=== PATIENT | male | born 1990 | race Caucasian/White ===

== ENCOUNTER 2017-10-18 04:24 | Inpatient (IN) | payer OTHER ==
[~2017-10-18 04:24] MED LIST: LORazepam 2 MG/ML INJ IVP ONE
[2017-10-18] MEDS ORDERED: TDAP ADULT 0.5 ML INJ (BOOSTRIX) IM ONE (04:32)
[2017-10-18] MEDS ORDERED: cefTRIAXone 1 GM/DEXTROSE 1 GM/50 ML BAG IV ONE (04:33)
[2017-10-18] MEDS ORDERED: ceFAZolin 2 GM/DEXTROSE 100 ML IV ONE (04:33)
[2017-10-18] MEDS ORDERED: LORazepam 2 MG/ML INJ IVP ONE (04:34)
[2017-10-18] MEDS ORDERED: CEFAZOLIN 1 GM/DEXTROSE/50 ML BAG IV ONE (04:35)
--- NOTE | 2017-10-18 04:37 | EDPHY ---
H & P Stated Complaint: L arm laceration Time Seen by Provider: 10/18/17 04:33 HPI/ROS: HPI: The patient presents with a laceration to his left elbow sustained just prior to arrival, brought in by paramedics. The patient says that he fell through a window, cutting his left elbow in the antecubital fossa with glass. He has had pain ever since which is constant, achy. He has no numbness or tingling of his hand and has full range of motion of his digits. He is covered in blood and bleeding has been difficult to control. REVIEW OF SYSTEMS Constitutional: No fever, no chills. Eyes: No discharge. ENT: No sore throat. Cardiovascular: No chest pain, no palpitations. Respiratory: No cough, no shortness of breath. Gastrointestinal: No abdominal pain, no vomiting. Genitourinary: No hematuria. Musculoskeletal: No back pain. Skin: No rashes. Neurological: No headache. PMHx: On Vivitrol TRAUMA PHYSICAL General Appearance: Alert, no distress Head: Atraumatic Eyes: Pupils equal, round, reactive ENT, Mouth: No hemotypanium, no oral trauma Neck: Non- tender, trachea midline Respiratory: No chest wall tenderness, no subcutaneous air, lungs clear bilaterallty Cardiovascular: Regular rate and rhythm Abdomen: Abdomen is soft and non-tender, pelvis stable Skin: Right antecubital fossa with 6 cm laceration which is gaping with active significant oozing of blood from the wound Back: No midline T/L/S pain Extremities: Biceps tendon on the right is shortened, holding his arm in extension, 2+ DP pulses, sensation intact in hand Neurological: A&Ox3, GCS=15, hand strength is full except that he is unable to give a thumbs-up sign Source: Patient Exam Limitations: No limitations Constitutional: Initial Vital Signs Temperature (C) 36.6 C 10/18/17 04:30 Heart Rate 82 10/18/17 04:30 Respiratory Rate 20 10/18/17 04:30 Blood Pressure 102/41 L 10/18/17 04:30 O2 Sat (%) 93 10/18/17 04:30 O2 Delivery Mode Nasal Cannula O2 (L/minute) 4 Allergies/Adverse Reactions: No Known Allergies Allergy (Unverified 10/18/17 04:53) Medical Decision Making - Diagnostics Imaging Results: X-ray left elbow two view shows no fracture, no dislocation, no retained foreign body. Interpreted by me, radiology interpretation is pending. Imaging: I viewed and interpreted images myself Differential Diagnosis: 28-year-old male, currently on Vivitrol, presents brought in by ambulance after fall through sliding glass door, sustaining large laceration to his left elbow. He has active bleeding which has been difficult for medics to control. His laceration is in the antecubital fossa. He seems to be neurovascularly intact though cannot give thumbs up sign somewhat concerning for median nerve injury. Pressure dressing was placed and tourniquet was placed. Patient was given Ancef , tetanus was updated, he was given Ativan for anxiety. I consulted with Dr. Walsh from Trauma surgery and he will come and see the patient. Dr. Walsh evaluated the patient in the emergency department. I also discussed the case with Dr. Frias of Orthopedics. They plan to take the patient to the OR for an exploration of the wound and possible biceps tendon repair. - Data Points Laboratory Results: Laboratory Results 10/18/17 04:30 10/18/17 04:30 10/18/17 10/18/17 10/18/17 04:30 04:30 04:30 WBC 9.90 10^3/uL H 10^3/uL (3.80-9.50) RBC 4.59 10^6/uL 10^6/uL (4.40-6.38) Hgb 15.1 g/dL g/dL (13.7-17.5) Hct 42.7 % % (40.0-51.0) MCV 93.0 fL fL (81.5-99.8) MCH 32.9 pg pg (27.9-34.1) MCHC 35.4 g/dL g/dL (32.4-36.7) RDW 12.2 % % (11.5-15.2) Plt Count 275 10^3/uL 10^3/uL (150-400) MPV 9.5 fL fL (8.7-11.7) Neut % (Auto) 50.2 % % (39.3-74.2) Lymph % (Auto) 41.0 % % (15.0-45.0) [place] % (Auto) 7.3 % % (4.5-13.0) Eos % (Auto) 0.5 % L % (0.6-7.6) Baso % (Auto) 0.6 % % (0.3-1.7) Nucleat RBC Rel Count 0.0 % % (0.0-0.2) Absolute Neuts (auto) 4.97 10^3/uL 10^3/uL (1.70-6.50) Absolute Lymphs (auto) 4.06 10^3/uL H 10^3/uL (1.00-3.00) Absolute Monos (auto) 0.72 10^3/uL 10^3/uL (0.30-0.80) Absolute Eos (auto) 0.05 10^3/uL 10^3/uL (0.03-0.40) Absolute Basos (auto) 0.06 10^3/uL 10^3/uL (0.02-0.10) Absolute Nucleated RBC 0.00 10^3/uL 10^3/uL (0-0.01) Immature Gran % 0.4 % % (0.0-1.1) Immature Gran # 0.04 10^3/uL 10^3/uL (0.00-0.10) PT 13.9 SEC SEC (12.0-15.0) INR 1.05 (0.83-1.16) Sodium 141 mEq/L mEq/L (135-145) Potassium 3.3 mEq/L mEq/L (3.3-5.0) Chloride 103 mEq/L mEq/L (97-110) Carbon Dioxide 22 mEq/l mEq/l (22-31) Anion Gap 16 mEq/L mEq/L (8-16) BUN 24 mg/dL H mg/dL (7-23) Creatinine 1.0 mg/dL mg/dL (0.7-1.3) Estimated GFR > 60 Glucose 120 mg/dL H mg/dL (70-100) Calcium 9.0 mg/dL mg/dL (8.5-10.4) Ethyl Alcohol 65 mg/dL H mg/dL (0-10) Medications Given: Discontinued Medications Cefazolin Sodium/Dextrose (Ancef 2 Gm) 100 mls @ 200 mls/hr IV EDNOW ONE PRN Reason: Protocol Stop: 10/18/17 05:02 Last Admin: 10/18/17 05:02 Dose: 100 mls Sodium Chloride (Ns) 1,000 mls @ 0 mls/hr IV ONCE ONE PRN Reason: Wide Open Stop: 10/18/17 05:03 Last Admin: 10/18/17 04:20 Dose: 1,000 mls Ketorolac Tromethamine (Toradol) 30 mg IVP EDNOW ONE Stop: 10/18/17 05:07 Last Admin: 10/18/17 05:09 Dose: 30 mg Lorazepam (Ativan Injection) 1 mg IVP EDNOW ONE Stop: 10/18/17 04:35 Last Admin: 10/18/17 05:02 Dose: 1 mg Lorazepam (Ativan Injection) 1 mg IVP EDNOW ONE Stop: 10/18/17 04:25 Last Admin: 10/18/17 04:34 Dose: 1 mg Morphine Sulfate (Morphine) 4 mg IVP EDNOW ONE Stop: 10/18/17 05:07 Last Admin: 10/18/17 06:23 Dose: Not Given Ondansetron HCl (Zofran) 4 mg IVP EDNOW ONE Stop: 10/18/17 05:07 Last Admin: 10/18/17 05:09 Dose: 4 mg Departure - Departure Disposition: [facility] Inpatient Acute Clinical Impression: Hemorrhage Arm laceration Qualifiers: Encounter type: initial encounter Laterality: right Qualified Code(s): S41.111A - Laceration without foreign body of right upper arm, initial encounter Biceps tendon rupture Qualifiers: Encounter type: initial encounter Laterality: right Qualified Code(s): S46.211A - Strain of muscle, fascia and tendon of other parts of biceps, right arm, initial encounter Condition: Fair
[2017-10-18 04:56] LABS: PLATELET COUNT 275 10^3/uL (150-400)
[2017-10-18] MEDS ORDERED: NS 1,000 ML IV ONE (05:02)
[2017-10-18] MEDS ORDERED: KETOROLAC 30 MG/1 ML SDV IVP ONE (05:06)
[2017-10-18] MEDS ORDERED: ONDANSETRON 4 MG/2 ML VIAL IVP ONE (05:06)
[2017-10-18 05:15] LABS: INR 1.05 (0.83-1.16); PROTIME(PATIENT) 13.9 SEC (12.0-15.0)
--- NOTE | 2017-10-18 05:49 | PDANEPAE ---
ANE History of Present Illness Repair of laceration antecubital arm, repair of neurovascular lesion ANE Past Medical History - Cardiovascular History Hx Hypertension: No Hx Arrhythmias: No Hx Chest Pain: No Hx Coronary Artery / Peripheral Vascular Disease: No Hx CHF / Valvular Disease: No Hx Palpitations: No - Pulmonary History Hx COPD: No Hx Asthma/Reactive Airway Disease: No Hx Recent Upper Respiratory Infection: No Hx Oxygen in Use at Home: No Hx Sleep Apnea: No - Endocrine History Hx Diabetes: No Hypothyroid: No Hyperthyroid: No Obesity: no - Renal History Hx Renal Disorders: No - Liver History Hx Hepatic Disorders: No - Neurological & Psychiatric Hx Hx Neurological and Psychiatric Disorders: No - Cancer History Hx Cancer: No - GI History GERD: no Hx Gastrointestinal Disorders: No - Other Health History Other Health History: hx of opioid use, now on Vivitrol - Surgical History Prior Surgeries: wisdom tooth extraction ANE Review of Systems Review of Systems: - Exercise capacity METS (RN): 4 METS ANE Patient History - Allergies Allergies/Adverse Reactions: No Known Allergies Allergy (Unverified 10/18/17 04:53) - NPO status NPO Status: no food or drink >8 hours NPO Since - Liquids (Date): 10/17/17 NPO Since - Liquids (Time): 23:55 NPO Since - Solids (Date): 10/17/17 NPO Since - Solids (Time): 23:55 - Anes Hx Hx Anesthesia Complications (with details): no prior general anesthesia - Smoking Hx Smoking Status: Current every day smoker Marijuana use: Yes - Alcohol Use Alcohol Use: Other (5 drinks about 3 times/week) - Family Anes Hx Family Anes Hx: none ANE Labs/Vital Signs - Labs Result Diagrams: 10/18/17 04:30 10/18/17 04:30 - Vital Signs Blood Pressure: 102/41 Heart Rate: 82 Respiratory Rate: 20 O2 Sat (%): 93 Height: 185.42 cm Weight: 81.647 kg ANE Physical Exam - Airway Neck exam: FROM Mallampati Score: Class 1 Mouth exam: normal dental/mouth exam - Pulmonary Pulmonary: clear to auscultation - Cardiovascular Cardiovascular: regular rate and rhythym - ASA Status ASA Status: II, E ANE Anesthesia Plan Anesthesia Plan: general endotracheal anesthesia (Discussed possible difficulty regarding optimal pain control with patient. Questions answered.)
[2017-10-18] MEDS ORDERED: PROPOFOL 200 MG/20 ML VIAL ONE ×2 (05:55→07:36)
[2017-10-18] MEDS ORDERED: ROCURONIUM 50 MG/5 ML VIAL ONE ×3 (05:56→06:00)
[2017-10-18] MEDS ORDERED: fentaNYL 250 MCG/5 ML INJ ONE ×2 (05:56→08:04)
[2017-10-18] MEDS ORDERED: RANITIDINE 50 MG/2 ML VIAL ONE (05:58)
[2017-10-18] MEDS ORDERED: DEXAMETHASONE 4 MG/ML VIAL ONE (05:58)
[2017-10-18] MEDS ORDERED: METOCLOPRAMIDE 10 MG/2 ML VIAL ONE (05:58)
[2017-10-18] MEDS ORDERED: MIDAZOLAM 2 MG/2 ML VIAL ONE (06:08)
--- NOTE | 2017-10-18 06:22 | GHP ---
[f rep st] PREOP HISTORY AND PHYSICAL DATE OF ADMISSION: 10/18/2017 ADMITTING DIAGNOSIS: Traumatic injury, right antecubital fossa with neurovascular and tendon injury. 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 He apparently suspected his girlfriend was cheating on him. He showed up at her house and looked in the bedroom window and reportedly confirmed his suspicions. Apparently, he punched the window. This resulted in a sharp injury to his antecubital fossa. He called out to her to call 911. When EMS arrived, shirt was wrapped around the arm. There was a great deal of blood in the area. He was seen initially in the ER by Dr. Campa. A tourniquet was placed in the right upper extremity. She felt that there was non-pulsatile blood flow from the antecubital fossa to her examination at that time. He could not give a thumbs-up on the right hand. I was asked to come help with his evaluation and treatment. SOCIAL HISTORY: He smokes a quarter to a half pack a day. He also uses marijuana. He drinks approximately 5 drinks 3 times a week. (Note, his blood alcohol was approximately 50 this morning.) ALLERGIES: He has no known drug allergies. MEDICATIONS: He is on Vivitrol ( a narcotic inhibitor). He does not record any other medications or surgeries. He has a history of IV narcotic abuse. The last time he used IV heroin was approximately 6 months ago. He is not forthcoming with his medical history and other problems. He has had multiple outpatient visits to the ER. I reviewed those charts. I cannot identify any other issues of concern. PHYSICAL EXAMINATION: GENERAL: He is seen lying in ER [facility]. He does have clotted blood all over his body. He is awake and alert. He is asking for narcotics, but gives the caveat that they will not work unless the dose is high. He is breathing well at this point. He is not complaining of any issues beyond his right elbow. The tourniquet on the right arm has been replaced with blood pressure cuff. His airway is clear and unencumbered. On a focused physical examination, skull is normocephalic and atraumatic. LEFT UPPER EXTREMITY: Unremarkable. NECK: Unremarkable. CHEST: Stable to AP and lateral compression. LUNGS: Clear to auscultation. BACK: Inspected and found to be unremarkable. ABDOMEN: Scaphoid. Soft, nontender. Pelvis is stable. LOWER EXTREMITIES: Unremarkable. Attention now directed to the right arm. The tourniquet was taken down and a blood pressure cuff was placed. This was inflated to 200 mmHg but deflated to help with the exam and then reinflated. The dressing at the antecubital fossa was taken down. It is a deep laceration. Biceps tendon injury is identified. I feel further exploration is best done in the operating room. He could not give a "thumbs up" with his right hand. The arm was re-dressed. He has received tetanus, Ancef, IV fluids. LABORATORY DATA: As mentioned above, his alcohol was 56. His INR is 1.05. His hematocrit is 42.7. His platelet count is 275. ASSESSMENT AND PLAN: Dr. Frias has been contacted to help in the case. He is finishing up a case at this time. We will expedite urgent transfer to the operating room. An intraoperative arteriogram may be necessary. It does appear that this vascular injury is mainly a venous at this time. The antecubital fossa will be explored. There is a possibility nerve injury has occurred, that probably will not be repaired at this time. The tendon may be repaired. Extent of the tendon, muscle and joint injury is as yet unknown. I will depend upon Dr. Frias's assistance for that issue. /[id number]/MODL MTDD
[2017-10-18] MEDS ORDERED: KETAMINE 500 MG/10 ML VIAL ONE (06:24)
[2017-10-18] MEDS ORDERED: ALBUMIN 5% 250 ML BOTTLE IV ONE (07:07)
[2017-10-18] MEDS ORDERED: PHENYLEPHRINE HCL 100 MCG/ML SYR ONE (07:44)
[2017-10-18] MEDS ORDERED: PAPAVERINE HCL 60 MG/2 ML SDV ONE (08:21)
[2017-10-18] MEDS ORDERED: PHENYLEPHRINE 10 MG/ML SDV ONE (08:26)
[2017-10-18] MEDS ORDERED: ONDANSETRON 4 MG/2 ML VIAL ONE (08:38)
[2017-10-18] MEDS ORDERED: BACITRACIN ZINC 14.2 GM OINTTUBE TP ONE (08:47)
[2017-10-18] MEDS ORDERED: ONDANSETRON 4 MG/2 ML VIAL IVP PRN ×2 (09:12→09:14)
[2017-10-18] MEDS ORDERED: NALOXONE HCL 0.4 MG/ML INJ IVP PRN (09:14)
[2017-10-18] MEDS ORDERED: fentaNYL 100 MCG/2 ML INJ IVP PRN (09:14)
[2017-10-18] MEDS ORDERED: DIAZEPAM 5 MG/ML 1 ML SYR IVP PRN (09:14)
[2017-10-18] MEDS ORDERED: ACETAMINOPHEN 325 MG TAB PO SCH (09:15)
[2017-10-18] MEDS ORDERED: HEPARIN 10,000 UNIT/10 ML MDV (1,000 UNIT/ML) IVP PRN (09:26)
[2017-10-18] MEDS ORDERED: HEPARIN 10,000 UNIT/10 ML MDV (1,000 UNIT/ML) IVP ONE ×3 (09:26→10:45)
--- NOTE | 2017-10-18 09:49 | POSTOPPROG ---
Post Op Note Date of Operation: 10/19/17 Surgeon: Javan Walsh (Tavon Frias Co-Surgeon) Anesthesia: GET(General Endotracheal) Pre-op Diagnosis: Traumatic vascular/musculoskeletal and possibly neuro injury right antcub f Post-op Diagnosis: transection of right brachial artery and biceps tendon Indication: Traumatic vascular/musculoskeletal and possibly neuro injury right antcub f Procedure: Right greater saph interposition graft/ repair of distal biceps tendon Findings: transection of right brachial artery and biceps tendon Inf/Abcess present in the surg proc area at time of surgery?: No EBL: Large loss at scene - total blood loss unknown at this time Complications: none Drains: Da Sesay Specimen(s): None
--- NOTE | 2017-10-18 10:08 | POSTANESTH ---
Post Anesthetic Evaluation Cardiovascular Status: Normal, Stable Respiratory Status: Normal, Stable Level of Consciousness/Mental Status: Can Participate in Eval Pain Control: Adequate, Prn Tx Ordered Nausea/Vomiting Control: Adequate, Prn Tx Ordered Complications Possibly Related to Anesthesia: None Noted
[2017-10-18] MEDS: HEPARIN/DEXTROSE 500 ML IV SCH (10:44)
[2017-10-18 10:47] LABS: INR 1.12 (0.83-1.16); PROTIME(PATIENT) 14.6 SEC (12.0-15.0)
--- NOTE | 2017-10-18 10:54 | GOP ---
[f rep st] OPERATIVE REPORT DATE OF OPERATION: SURGEON: Javan Walsh MD ANESTHESIA: General endotracheal. PREOPERATIVE DIAGNOSIS: Traumatic/musculoskeletal/possible neurologic injury at right antecubital fossa. POSTOPERATIVE DIAGNOSIS: Transection of the right brachial artery and distal biceps tendons. Can not assess neuro status at this time PROCEDURE PERFORMED: 1. Placement of a right greater saphenous interposition graft repair injured right brachial artery. 2. Reapproximation distal biceps tendon injury. 3. Ligation of multiple venous bleeding points. 4. Placement of HALEY drain. FINDINGS: Transection of right brachial artery Multiple venous injuries Transection of biceps muscle/tendon ESTIMATED BLOOD LOSS: Unknown because of loss as scene. INDICATIONS: Traumatic/musculoskeletal/possible neurologic injury at right antecubital fossa. DESCRIPTION OF PROCEDURE: The patient was placed on the operating table in supine position. He was placed under general endotracheal anesthesia. A pneumatic tourniquet was placed in the proximal right arm. It was inflated and the antecubital dressing was taken down at this time. The right arm was carefully prepped from the level of the mid-humerus to the fingertips. It was draped with an extremity drape Exploration reveals multiple bleeding points. Partially transected veins are identified, clamped proximally and distally and divided. Suture ligatures carried out using a 4-0 silk suture. The brachial artery is transected, it is clamped proximally and distally with Satinsky clamps. Capillary refill is poor on the hand but by Doppler there is arterial flow to the hand and very minimal flow in the radial artery. At this time harvesting right saphenous vein for an interposition graftis carried out while Dr. Frias further explored the arm freeing the biceps muscle and tendon ( please see his dictations for further details). The muscle/tendon was not approximated at this point to facilitate the vascular repair but fiberwire suture had been placed. The saphenous vein graft has been identified with Doppler. An appropriate mid thigh incision was made. Dissection was continued down to the vein. A section of about 4 cm of vein are carefully elevated. It is clamped proximally and distally. A segment of the vein was obtained, flushed with saline and placed on the back table. The saphenous vein is suture ligated with 3-0 silk sutures. The skin was closed with meggan. The vein graft was spatulated at one end. It was carefully flushed with heparinized saline. It was brought to the field. The brachial artery was carefully skeletonized proximally and a Satinsky was replaced at a higher level. The distal 3 mm were transected to get to fresh edges. It was spatulated on the anterior border. #6 Groton-Darnell were used for the anastomosis. The tip of the vein graft was sutured with a simple suture at its apex to the brachial artery at the base of the spatulation. A 2nd suture was placed distally taking the end of the artery to the spatulated end of the vein graft. All sutures were placed so they go through the vein 1st outside to inside and then through the arterial wall inside to outside. This was tied as well. Posterior closure was run with the 6-0 Groton-Darnell to its midpoint. The distal sutures now run at the same level and these were tied. The other side was approached in a similar manner. The Satinsky clamp was moved to the distal point of the vein graft. Proximal Satinsky removed. The vascular anastomosis is intact without leak. The proximal clamp was again placed. Distally, the artery is again freshened for approximately 2 mm. It was spatulated. The end of the vein graft was spatulated in a mirror image. An identical anastomosis was carried out. First , the posterior wall was sewn and the suture was tied. The anterior wall then is stitched, but a Mohit is run distally and returned. Good backbleeding is identified. Forward flow was checked and found to be excellent. Note is made of valvulotome that has been run through the segment to make sure there are no retained valves and none were identified. A #2 fogerty cath was passed distally. The anterior wall anastomosis is closed. Careful flushing had been carried out first. Flow was reestablished. There was good flow in the vein graft with Doppler. There was good flow at the radial artery with the Doppler. There was good capillary refill. At this point, Dr. Frias approximates the tendon of the biceps using FiberWire sutures. Once this was completed HALEY drain was placed in the antecubital fossa and let out distally. Inverted simple sutures are used to close the fascia. At this point, Dr. Frias completes the skin closure. The patient is transferred to recovery in stable and satisfactory condition.HISTORY: This patient has developed a carbuncle on the base of the shaft of his penis on the anterior left lateral aspect. He has been treated with antibiotics. Appears to be pointing toward the skin. Drainage was requested by Dr. Mark Dos Santos. Da-Sesay drain had been placed. Dr. Frias may dictate a 2nd more complete version of his interventions. CO-SURGEONS: Javan Walsh MD and Tavon Frias MD. /[id number]/MODL MTDD
[2017-10-18 11:10] LABS: PLATELET COUNT 169 10^3/uL (150-400)
[2017-10-18] MEDS: KETAMINE 500 MG in D5W 500 ML IV SCH ×2 (11:20→21:43)
--- NOTE | 2017-10-18 11:30 | ASMTCASEMG ---
Living Arrangements What is your living Answers: Alone arrangement? Who do you live with? Type Of Residence What kind of residence do Answers: House you live in? Discharge Plan Comments Coordination Status Comments Notes: Patient is a 27yo single male who punched a window which resulted in a sharp injury to his antecubital fossa. Patient was taken to surgery to repair the tendon. PT/OT/Inpatient rehab evals ordered. Patient punched the window in response to catching his girlfriend cheating. His bal was 56 when he was in the ER. Patient does have a hx of IV narcotic abuse. D/C plan TBD. CM will follow. Date Signed: 10/18/2017 11:30 AM Electronically Signed By:Diana Leon LCSW
[2017-10-18] MEDS: KETOROLAC 30 MG/1 ML SDV IVP SCH ×3 (13:10→23:29)
[2017-10-18] MEDS: ceFAZolin 2 GM/DEXTROSE 100 ML IV SCH ×2 (13:14→21:16)
--- NOTE | 2017-10-18 13:21 | PDMN ---
Medical Necessity [facility] or Procedure, blood vessel repair;. Pt admitted w/traumatic vascular/musculoskeletal injury from sharp object to R antecubital fossa requiring surgical intervention: repair of brachial artery w/greater saph vein interposition graft from R thigh. Med nec post-surg care and ongoing monitoring and treatment, requiring IV heparin, Ketamine, abx
--- NOTE | 2017-10-18 15:15 | GCON ---
[f rep st] CONSULTATION PULMONARY/CRITICAL CARE CONSULTATION DATE OF CONSULTATION: 10/18/2017 REFERRING PHYSICIAN: Javan Walsh MD REASON FOR REFERRAL: Evaluation and management of anemia and opiate use. HISTORY: The patient is a 27-year-old male who was in his usual state of health when this morning he presented to the emergency department with an arm injury. He apparently suspected his girlfriend dilia s cheating on him and showed up at her house and confirmed his suspicions. He punched a window, whic h resulted in injury to his antecubital fossa. He was brought into the emergency department where a tourniquet was placed. The patient was evaluated by Dr. Walsh and taken to the operating room by Dr marilee Walsh and Altagracia. He had repair of a right brachial artery laceration, as well as reapproximation of his distal biceps tendon. The brachial artery repair was done with a saphenous vein graft from [facility] right leg. The patient recovered well from surgery. He reports good pain control. He has no naus ea, vomiting, or diarrhea. PAST MEDICAL HISTORY: History of IV narcotic abuse, currently on naltrexone after 6 months of abstin ence. MEDICATIONS: Naltrexone, clonidine. ALLERGIES: None. 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 He drinks about 5 drinks 3 times a week. He smok es a quarter to a half a pack of cigarettes daily and uses marijuana. FAMILY HISTORY: Unremarkable. REVIEW OF SYSTEMS: A 10-point review of systems adds nothing to the History of Present Illness. PHYSICAL EXAMINATION: GENERAL: The patient is awake, alert, in no acute distress. VITAL SIGNS: [facility] blood pressure is 133/59, with a heart rate of 103. He is afebrile. Oxygen saturations are 97% on room air. HEENT: Normocephalic and atraumatic. No icterus. NECK: No JVD. Trachea is midline. CHEST: Clear to auscultation. CARDIAC: Regular rate and rhythm, without murmur. ABDOMEN: Soft, no ntender. Bowel sounds are present. EXTREMITIES: His right upper extremity is dressed from the upper arm down to the fingertips. He is able to move all 5 fingertips and has sensation. His right lower extremity is wrapped in a bandage postoperatively. NEURO: The patient is awake and alert. There a re no gross motor or sensory deficits, except as outlined in the extremity exam. He is oriented x3. LABORATORY DATA: Hemoglobin is 11.4, down from 15.1. Chemistry group is unremarkable. ASSESSMENT: 1. Status post traumatic laceration of the right brachial artery and biceps tendon. The patient is status post repair with good initial function distally. 2. Anemia. This is due to acute blood loss. He is hemodynamically stable, and the patient does not have severe anemia. 3. History of intravenous narcotic abuse, currently on naltrexone. Opiates will be avoided if possi ble during the hospitalization. The patient is currently on a ketamine drip for pain control. RECOMMENDATIONS: 1. Repeat hemoglobin level. 2. Continue ketamine for pain control. 3. PT/OT evaluations when appropriate. /[id number]/MODL
[2017-10-18] MEDS ORDERED: CARBOXYMETHYLCELLULOSE 1% 0.4 ML DROPERETTE EACHEYE PRN (15:17)
[2017-10-18 17:08] LABS: PLATELET COUNT 131 10^3/uL (150-400)
[2017-10-18] MEDS: LR 1,000 ML IV SCH (20:20)
[2017-10-18] MEDS: ACETAMINOPHEN 500 MG TAB PO SCH (21:15)
[2017-10-19] MEDS: LR 1,000 ML IV SCH ×2 (04:31→19:45)
[2017-10-19] MEDS: HEPARIN/DEXTROSE 500 ML IV SCH (04:32)
[2017-10-19] MEDS: ACETAMINOPHEN 500 MG TAB PO SCH ×3 (05:47→21:33)
[2017-10-19] MEDS: ceFAZolin 2 GM/DEXTROSE 100 ML IV SCH ×3 (05:47→21:33)
[2017-10-19] MEDS: KETOROLAC 30 MG/1 ML SDV IVP SCH ×3 (05:48→17:53)
[2017-10-19 06:05] LABS: PLATELET COUNT 136 10^3/uL (150-400)
[2017-10-19 06:13] LABS: INR 1.25 (0.83-1.16); PROTIME(PATIENT) 15.9 SEC (12.0-15.0)
--- NOTE | 2017-10-19 12:37 | PDINTPN ---
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 Good perfusion. On Heparin S/P laceration of right biceps tendon: Repaired 10/17. Hx Heroin use: On Naltrexone. Avoiding narcotics, so pain control with Toradol and Ketamine gtt. Anemia Hgb trending down. No signs of internal blood loss. No Sx. Likely dilutional. Plan: Diet and activity as tolerated. Continue Ketamine/Toradol. Stop heparin, start ASA when OK with surgery. Repeat H/H tomorrow. 10/19/17 12:33 Subjective: Feels OK, pain fairly well controlled. No BMs. Appetite good. Walked without difficulty Objective: Vital Signs Temp Pulse Resp BP Pulse Ox 36.6 C 71 16 122/70 H 98 10/19/17 06:00 10/19/17 11:00 10/19/17 11:00 10/19/17 11:00 10/19/17 11:00 Laboratory Results 10/19/17 05:45 10/19/17 05:45 10/18/17 10/19/17 10/20/17 05:59 05:59 05:59 Intake Total 6316 Output Total 2713 Balance 3603 PT 15.9 SEC (12.0-15.0) H 10/19/17 05:45 INR 1.25 (0.83-1.16) H 10/19/17 05:45 Physical Exam - Physical Exam General Appearance: alert, no apparent distress EENT: normal ENT inspection Neck: normal inspection Respiratory: lungs clear, normal breath sounds Cardiac/Chest: regular rate, rhythm, No edema Abdomen: normal bowel sounds, non-tender Skin: normal color, warm/dry Extremities: other (good movement right fingers) Neuro/Psych: alert, normal mood/affect, oriented x 3 ICD10 Worksheet Patient Problems: Problems Problem Status Onset Arm laceration Acute Biceps tendon rupture Acute Hemorrhage Acute
--- NOTE | 2017-10-19 14:26 | ASMTCMCOM ---
CM Note CM Note Notes: Patient went for repair with saphenous vein graft. PT/OT recommends home independent. CM available if d/c needs arise. Date Signed: 10/19/2017 02:25 PM Electronically Signed By:Diana Leon LCSW
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
[2017-10-19] MEDS: KETAMINE 500 MG in D5W 500 ML IV SCH (15:33)
[2017-10-20] MEDS: KETOROLAC 30 MG/1 ML SDV IVP SCH ×5 (00:15→23:08)
[2017-10-20] MEDS: ACETAMINOPHEN 500 MG TAB PO SCH ×3 (05:48→23:02)
[2017-10-20] MEDS: ceFAZolin 2 GM/DEXTROSE 100 ML IV SCH ×3 (05:49→23:02)
[2017-10-20] MEDS: KETAMINE 500 MG in D5W 500 ML IV SCH ×2 (05:50→11:45)
[2017-10-20 06:17] LABS: PLATELET COUNT 142 10^3/uL (150-400)
--- NOTE | 2017-10-20 10:17 | TRAUMAPN ---
Trauma Progress Note Assessment/Plan: POD#2 10/21/2107 Assessment: No complaints, pain well controlled ( Ketamine drip decreased ), Hand warm with good cap refill, arm in splint Plan: Continue heparin drip. Consider switch to plavix. Assess flow with doppler. Continue antibiotics and splint. Hope to take down dressing with Dr. Frias later today and examine wound. Subjective: Expresses concern regarding infection risk. No stool yet Objective: Vital Signs Temp Pulse Resp BP Pulse Ox 36.8 C 75 10 L 125/60 H 97 10/20/17 07:46 10/20/17 07:46 10/20/17 07:46 10/20/17 07:46 10/20/17 07:46 Laboratory Results 10/20/17 06:00 10/19/17 05:45 10/19/17 10/20/17 10/21/17 05:59 05:59 05:59 Intake Total 6316 3669 Output Total 2713 25 Balance 3603 3644 PT 15.9 SEC (12.0-15.0) H 10/19/17 05:45 INR 1.25 (0.83-1.16) H 10/19/17 05:45 - C-Spine Clearance Cervical Spine Cleared: Yes Provider who Cleared Cervical Spine: hayley Physical Exam - Physical Exam General Appearance: WD/WN, alert, no apparent distress Respiratory: chest non-tender, lungs clear, normal breath sounds Cardiac/Chest: regular rate, rhythm Abdomen: normal bowel sounds, non-tender, soft Male Genitalia: deferred Rectal: deferred Back: Normal inspection Skin: normal color, warm/dry Extremities: other (Donor site ( right thigh) looks good, Right arm dressed) Neuro/Psych: no motor/sensory deficits, alert, normal mood/affect, oriented x 3 Time Spent w/Patient (minutes): 25
--- NOTE | 2017-10-20 11:59 | PDINTPN ---
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 Good perfusion. On Heparin S/P transection of right biceps tendon: Repaired 10/17. Hx Heroin use: On Naltrexone. Avoiding narcotics, so pain control with Toradol and Ketamine gtt. Anemia Hgb seems to be stabilized. No signs of internal blood loss. No Sx. Likely dilutional. Plan: Diet and activity as tolerated. Continue Ketamine/Toradol. Stop heparin, start ASA when OK with surgery. Follow H/H. start FeSO4 10/20/17 11:59 Subjective: Arm feels OK, pain controlled. Ambulating well. Appetite good. Objective: Vital Signs Temp Pulse Resp BP Pulse Ox 36.8 C 68 12 124/67 H 97 10/20/17 11:51 10/20/17 11:51 10/20/17 11:51 10/20/17 11:47 10/20/17 11:51 Laboratory Results 10/20/17 06:00 10/19/17 05:45 10/19/17 10/20/17 10/21/17 05:59 05:59 05:59 Intake Total 6316 3669 Output Total 2713 25 Balance 3603 3644 PT 15.9 SEC (12.0-15.0) H 10/19/17 05:45 INR 1.25 (0.83-1.16) H 10/19/17 05:45 Physical Exam - Physical Exam General Appearance: alert, no apparent distress EENT: normal ENT inspection Neck: normal inspection Respiratory: lungs clear, normal breath sounds Cardiac/Chest: regular rate, rhythm, No edema Abdomen: normal bowel sounds, non-tender Skin: normal color, warm/dry Extremities: other (RUE dressed, (+) finger movement. ) Neuro/Psych: alert, normal mood/affect, oriented x 3 ICD10 Worksheet Patient Problems: Problems Problem Status Onset Arm laceration Acute Biceps tendon rupture Acute Hemorrhage Acute
[2017-10-20] MEDS: HEPARIN/DEXTROSE 500 ML IV SCH (13:16)
[2017-10-20] MEDS: FERROUS SULFATE 325 MG TAB PO SCH (14:58)
[2017-10-21] MEDS: ceFAZolin 2 GM/DEXTROSE 100 ML IV SCH ×2 (05:15→14:32)
[2017-10-21] MEDS: KETOROLAC 30 MG/1 ML SDV IVP SCH ×4 (05:15→23:13)
[2017-10-21] MEDS: ACETAMINOPHEN 500 MG TAB PO SCH ×3 (07:10→21:04)
[2017-10-21] MEDS: CLOPIDOGREL BISULFATE 75 MG TAB PO SCH (07:11)
[2017-10-21] MEDS ORDERED: POLYETHYLENE GLYCOL 3350 17 GM PKT PO PRN (10:35)
[2017-10-21] MEDS ORDERED: LACTULOSE 20 GM/30 ML UDCUP PO PRN (10:35)
[2017-10-21] MEDS ORDERED: MAGNESIUM HYDROXIDE 30 ML UDCUP PO PRN (10:35)
[2017-10-21] MEDS ORDERED: BISACODYL 10 MG SUPP PR PRN (10:35)
[2017-10-21] MEDS: FERROUS SULFATE 325 MG TAB PO SCH (10:50)
[2017-10-21] MEDS: CYCLOBENZAPRINE 10 MG TAB PO PRN ×2 (12:08→21:04)
--- NOTE | 2017-10-21 14:20 | SOAPPROG ---
[facility] Progress Note Assessment/Plan: Assessment: 27y M right arm laceration and Right brachial artery and biceps tendon transections s/p Right arm revascularization with interpositional graft and bight biceps tendon repair Plan: - Continue NWB RUE - can only write and type with Right arm - Elevate RUE above heart as much as possible - Drain removed today - Keep RUE splint clean and dry - Followup with Dr. Frias for RUE about 2 weeks postop (10/30) for wound check: Call [phone] to make appointment 10/21/17 14:15 Subjective: Pain spike addressed with muscle relaxant. comfortable now. Objective: Vital Signs Temp Pulse Resp BP Pulse Ox 37 C 79 10 L 124/68 H 98 10/21/17 12:00 10/21/17 12:00 10/21/17 12:00 10/21/17 12:00 10/21/17 12:00 Laboratory Results 10/21/17 05:30 10/19/17 05:45 10/20/17 10/21/17 10/22/17 05:59 05:59 05:59 Intake Total 3669 2210 Output Total 25 6 Balance 3644 2204 PT 15.9 SEC (12.0-15.0) H 10/19/17 05:45 INR 1.25 (0.83-1.16) H 10/19/17 05:45 AxOx3. RUE: Long arm splint CDI. SILT A/R/U/M. Moving fingers well. 2+ radial pulse. 4 +/5 EPL/APB/FDS/FDP2,5/IO ICD10 Worksheet Patient Problems: Problems Problem Status Onset Arm laceration Acute Biceps tendon rupture Acute Hemorrhage Acute
--- NOTE | 2017-10-21 14:25 | TRAUMAPN ---
Trauma Progress Note Assessment/Plan: POD#2 10/21/2107 Assessment: No complaints, pain well controlled ( Ketamine drip decreased ), Hand warm with good cap refill, arm in splint Plan: Continue heparin drip. Consider switch to plavix. Assess flow with doppler. Continue antibiotics and splint. Hope to take down dressing with Dr. Frias later today and examine wound. POD#3 10/21/2017 Assessment: Doing quite well. incisions clean, well approximated and dry Good pulse and sensation Had hard stool today and noted a amount of blood Plan: Home tomorrow Subjective: Flexeril treated my spasms well Objective: Vital Signs Temp Pulse Resp BP Pulse Ox 37 C 79 10 L 124/68 H 98 10/21/17 12:00 10/21/17 12:00 10/21/17 12:00 10/21/17 12:00 10/21/17 12:00 Laboratory Results 10/21/17 05:30 10/19/17 05:45 10/20/17 10/21/17 10/22/17 05:59 05:59 05:59 Intake Total 3669 2210 Output Total 25 6 Balance 3644 2204 PT 15.9 SEC (12.0-15.0) H 10/19/17 05:45 INR 1.25 (0.83-1.16) H 10/19/17 05:45 - C-Spine Clearance Cervical Spine Cleared: Yes Provider who Cleared Cervical Spine: hayley Physical Exam - Physical Exam General Appearance: WD/WN, alert, no apparent distress Neck: non-tender, full range of motion, supple Respiratory: chest non-tender, lungs clear, normal breath sounds Cardiac/Chest: regular rate, rhythm Abdomen: normal bowel sounds, non-tender, soft Male Genitalia: deferred Rectal: deferred Back: Normal inspection Skin: normal color, warm/dry Extremities: other (good radial pulse) Neuro/Psych: alert, normal mood/affect, oriented x 3 Time Spent w/Patient (minutes): 25
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
[2017-10-21] MEDS: SENNOSIDES/DOCUSATE SODIUM TAB PO SCH (21:04)
[2017-10-22] MEDS: KETOROLAC 30 MG/1 ML SDV IVP SCH ×2 (05:29→13:12)
[2017-10-22] MEDS: ACETAMINOPHEN 500 MG TAB PO SCH ×2 (05:29→12:41)
[2017-10-22] MEDS: SENNOSIDES/DOCUSATE SODIUM TAB PO SCH (09:00)
[2017-10-22] MEDS: CYCLOBENZAPRINE 10 MG TAB PO PRN (09:00)
[2017-10-22] MEDS: CLOPIDOGREL BISULFATE 75 MG TAB PO SCH (09:01)
[2017-10-22] MEDS: FERROUS SULFATE 325 MG TAB PO SCH (09:01)
[2017-10-22 09:02] VITALS: BP 128/62
--- NOTE | 2017-10-22 14:52 | TRAUMAPN ---
Trauma Progress Note Assessment/Plan: POD#2 10/21/2107 Assessment: No complaints, pain well controlled ( Ketamine drip decreased ), Hand warm with good cap refill, arm in splint Plan: Continue heparin drip. Consider switch to plavix. Assess flow with doppler. Continue antibiotics and splint. Hope to take down dressing with Dr. Frias later today and examine wound. POD#3 10/21/2017 Assessment: Doing quite well. incisions clean, well approximated and dry Good pulse and sensation Had hard stool today and noted a amount of blood Plan: Home tomorrow POD#4 10/22/2017 Assessment: Doing well Plan: Home today Subjective: I'm doing well Objective: Vital Signs Temp Pulse Resp BP Pulse Ox 36.2 C 56 L 18 128/62 H 100 10/21/17 21:00 10/22/17 09:01 10/22/17 09:01 10/22/17 09:01 10/22/17 09:01 Laboratory Results 10/21/17 05:30 10/19/17 05:45 10/21/17 10/22/17 10/23/17 05:59 05:59 05:59 Intake Total 2210 2090 1300 Output Total 6 0 Balance 2204 2090 1300 PT 15.9 SEC (12.0-15.0) H 10/19/17 05:45 INR 1.25 (0.83-1.16) H 10/19/17 05:45 - C-Spine Clearance Cervical Spine Cleared: Yes Provider who Cleared Cervical Spine: hayley Physical Exam - Physical Exam General Appearance: WD/WN, alert, no apparent distress Respiratory: lungs clear, normal breath sounds Cardiac/Chest: regular rate, rhythm Extremities: other (Normal sensation and warm right hand noted) Time Spent w/Patient (minutes): 15
== END 2017-10-22 15:00 | disposition home or self-care (01) | DRG 501 ==
LOC: EDBD 04:24 → MERGE 05:32 → EDBD 05:32 → OBSVTOIN 05:32 → F2N 11:07
PROVIDERS: ADMIT Surgery; ATTEND Surgery
DX: S46.121A Laceration of muscle, fascia and tendon of long head of biceps, right arm, initial encounter (principal); S51.011A Laceration without foreign body of right elbow, initial encounter; D62 Acute posthemorrhagic anemia; W18.02XA Striking against glass with subsequent fall, initial encounter; F10.129 Alcohol abuse with intoxication, unspecified; F11.20 Opioid dependence, uncomplicated; F17.210 Nicotine dependence, cigarettes, uncomplicated; F12.90 Cannabis use, unspecified, uncomplicated; X58.XXXA Exposure to other specified factors, initial encounter; Y92.032 Bedroom in apartment as the place of occurrence of the external cause; Y90.3 Blood alcohol level of 60-79 mg/100 ml
CPT/HCPCS: 85520-90; 96374; 97116-GP; 97161-GP; 97165-GO; 97530-GP; 97535-GO; C1757; G0480; J0690; J0696; J1100; J1644; J1885; J2060; J2250; J2270; J2370; J2405; J2440; J2704; J2765; J2780; J3010; P9016; P9017; P9041

== ENCOUNTER 2018-02-24 16:25 | Emergency (ER) | payer OTHER ==
[2018-02-24 16:30] VITALS: BP 129/79
--- NOTE | 2018-02-24 17:02 | EDPHY ---
H & P Stated Complaint: Pain/redness R foot;no known injury; red streaks noted Time Seen by Provider: 02/24/18 16:40 HPI/ROS: CHIEF COMPLAINT: Right foot pain, redness, mild lymphangitis HISTORY OF PRESENT ILLNESS: The patient awoke today with right foot pain. He thought he may have possibly kicked something last night. Today he noticed some redness and swelling over the dorsal aspect of his foot with some mild lymphangitis extending up to the ankle. The patient denies any fever. He does report moderate pain with attempted ambulation. The patient denies prior history of cellulitis or abscess. The patient denies significant history of diabetes or immunosuppression. Patient denies any additional painful joints, urethral discharge or rash. Patient does have a remote history of IV drug use but denies any recent injection drug use. REVIEW OF SYSTEMS: A comprehensive 10 point review of systems is otherwise negative aside from elements mentioned in the history of present illness. Source: Patient Exam Limitations: No limitations - Personal History Current Tetanus Diphtheria and Acellular Pertussis (TDAP): Yes - Medical/Surgical History Hx Asthma: No Hx Chronic Respiratory Disease: No Hx Diabetes: No Hx Cardiac Disease: No Hx Renal Disease: No Hx Cirrhosis: No Hx Alcoholism: No Hx HIV/AIDS: No Hx Splenectomy or Spleen Trauma: No Other PMH: sciatica, iv drug use- 6 months clean - Social History Smoking Status: Current every day smoker - Physical Exam Exam: General Appearance: Alert, no distress Eyes: Pupils equal and round no pallor or injection ENT, Mouth: Mucous membranes moist Respiratory: There are no retractions, lungs are clear to auscultation Cardiovascular: Regular rate and rhythm Gastrointestinal: Abdomen is soft and nontender, no masses, bowel sounds normal Neurological: A&O, normal motor function, normal sensory exam, normal cranial nerves Skin: Cellulitic changes noted to the dorsal aspect of the right foot, superficial abrasion noted to dorsal aspect of the right foot Musculoskeletal: Neck is supple nontender Extremities: Tenderness to palpation over the distal right foot over the heads of the 3rd and 4th metatarsal tarsals. Constitutional: Initial Vital Signs Temperature (C) 36.9 C 02/24/18 16:26 Heart Rate 102 H 02/24/18 16:26 Respiratory Rate 18 02/24/18 16:26 Blood Pressure 129/79 H 02/24/18 16:26 O2 Sat (%) 96 02/24/18 16:26 O2 Delivery Mode Room Air Allergies/Adverse Reactions: No Known Allergies Allergy (Verified 02/24/18 16:26) Home Medications: Medication Instructions Recorded Cephalexin [Keflex] 500 mg PO QID #40 cap 02/24/18 Sulfamethox/Tmp 800/160 mg 1 tab PO BID #20 tab 02/24/18 [Bactrim DS] Medical Decision Making - Diagnostics Imaging Results: Right foot x-ray: Images reviewed by myself, negative for fracture or foreign body. Impression normal foot x-ray series ED Course/Re-evaluation: The patient presents to the ED with mild cellulitis and slight lymphangitis to the dorsum of his foot. The patient is nontoxic and well-appearing. His vital signs are stable. He has no appreciable leukocytosis. X-rays of the foot demonstrate no evidence of a fracture or foreign body. Patient received 1 g of IV ceftriaxone. He will be discharged home with a prescription for Keflex and Bactrim. The patient is advised to limit his ambulation. He should elevate the extremity at night. The patient has been instructed to return to the ED for any progressive infection as this may be the sign of a more aggressive infection warranting inpatient IV therapy. Differential Diagnosis: Differential diagnosis considered includes cellulitis, abscess, foreign body, fracture, gout - Data Points Laboratory Results: Laboratory Results 02/24/18 16:35 02/24/18 16:35 02/24/18 02/24/18 16:35 16:35 WBC 9.39 10^3/uL 10^3/uL (3.80-9.50) RBC 5.17 10^6/uL 10^6/uL (4.40-6.38) Hgb 15.0 g/dL g/dL (13.7-17.5) Hct 43.2 % % (40.0-51.0) MCV 83.6 fL fL (81.5-99.8) MCH 29.0 pg pg (27.9-34.1) MCHC 34.7 g/dL g/dL (32.4-36.7) RDW 14.1 % % (11.5-15.2) Plt Count 223 10^3/uL 10^3/uL (150-400) MPV 9.0 fL fL (8.7-11.7) Neut % (Auto) 70.7 % % (39.3-74.2) Lymph % (Auto) 16.9 % % (15.0-45.0) [place] % (Auto) 11.9 % % (4.5-13.0) Eos % (Auto) 0.1 % L % (0.6-7.6) Baso % (Auto) 0.2 % L % (0.3-1.7) Nucleat RBC Rel Count 0.0 % % (0.0-0.2) Absolute Neuts (auto) 6.63 10^3/uL H 10^3/uL (1.70-6.50) Absolute Lymphs (auto) 1.59 10^3/uL 10^3/uL (1.00-3.00) Absolute Monos (auto) 1.12 10^3/uL H 10^3/uL (0.30-0.80) Absolute Eos (auto) 0.01 10^3/uL L 10^3/uL (0.03-0.40) Absolute Basos (auto) 0.02 10^3/uL 10^3/uL (0.02-0.10) Absolute Nucleated RBC 0.00 10^3/uL 10^3/uL (0-0.01) Immature Gran % 0.2 % % (0.0-1.1) Immature Gran # 0.02 10^3/uL 10^3/uL (0.00-0.10) Sodium 138 mEq/L mEq/L (135-145) Potassium 4.0 mEq/L mEq/L (3.3-5.0) Chloride 101 mEq/L mEq/L (97-110) Carbon Dioxide 25 mEq/l mEq/l (22-31) Anion Gap 12 mEq/L mEq/L (6-14) BUN 12 mg/dL mg/dL (7-23) Creatinine 1.0 mg/dL mg/dL (0.7-1.3) Estimated GFR > 60 Glucose 112 mg/dL H mg/dL (70-100) Calcium 9.5 mg/dL mg/dL (8.5-10.4) Medications Given: Discontinued Medications Ceftriaxone Sodium/Dextrose (Rocephin 1 Gm (Premix)) 50 mls @ 100 mls/hr IV EDNOW ONE PRN Reason: Protocol Stop: 02/24/18 17:28 Last Admin: 02/24/18 17:04 Dose: 50 mls Departure - Departure Disposition: Home, Routine, Self-Care Clinical Impression: Cellulitis of right foot Condition: Good Instructions: Cephalexin (By mouth), Sulfamethoxazole/Trimethoprim (By mouth), Cellulitis (DC) Additional Instructions: 1. Please take antibiotics as prescribed for next 10 days. 2. Please try and limit your activity on the foot while you are healing your infection. 3. Please return to the ED for progressive redness, swelling, streaking going up your legs or other concerns. Referrals: NONE *PRIMARY CARE P,. [Primary Care Provider] - As per Instructions Prescriptions: Cephalexin [Keflex] 500 mg PO QID #40 cap Sulfamethox/Tmp 800/160 mg [Bactrim DS] 1 tab PO BID #20 tab
[2018-02-24 17:23] LABS: PLATELET COUNT 223 10^3/uL (150-400)
[2018-02-24] MEDS ORDERED: CEPHALEXIN 500MG PREPACK#4 BTL TAKEHOME ONE (17:37)
[2018-02-24] MEDS ORDERED: SULFAMET/TMP DS PREPACK#2 BTL TAKEHOME ONE (17:37)
[2018-02-24] MEDS ORDERED: SULFAMETHOX/TMP 800/160 MG 1 TAB PO ONE (18:04)
== END 2018-02-24 18:15 | disposition home or self-care (01) ==
DX: L03.115 Cellulitis of right lower limb (principal); I89.1 Lymphangitis; F17.200 Nicotine dependence, unspecified, uncomplicated
CPT/HCPCS: 96365; J0696

== ENCOUNTER 2018-02-26 10:09 | Inpatient (IN) | payer OTHER ==
--- NOTE | 2018-02-26 10:48 | EDPHY ---
H & P Stated Complaint: R foot redness swelling worse since 02/24 visit for same Time Seen by Provider: 02/26/18 10:47 HPI/ROS: HPI: This is a 27-year-old male who presents with Chief Complaint: R foot redness swelling worse since 02/24 visit for same Location: Right foot Quality: Redness and swelling Duration: Since 02/24/2018 Signs and Symptoms: No bleeding, no radiation, no numbness, no weakness, no tingling, no incontinence, no decreased range of motion, + swelling, + pain, no fever Timing: Worsening Severity: Moderate Context: Patient presents with complaints of worsening infection on his right foot. He reports that it initially started at the base of the 2nd toe several days ago. He was seen in this emergency room and treated. He reports compliance on his oral antibiotics. Despite taking these medications he reports that now the redness and swelling has spread to 2nd, 3rd, 4th, 5th toes and up into his ankle. He reports increased pain with movement and decreased range of motion. Denies any fever/trauma/injury. Chart review for 02/24/2018 shows IV Rocephin given a prescription for Keflex and Bactrim. 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 HX MRSA. Modifying Factors: Comment: ROS: A comprehensive 10 system review of systems is otherwise negative aside from elements mentioned in the history of present illness. MEDICAL/SURGICAL/SOCIAL HISTORY: Medical history: Sciatica, IV drug user Surgical history: Denies Social history: Drug use. Smoker. CONSTITUTIONAL: Nontoxic-appearing young adult white male, awake and alert, no obvious distress HEENT: Atraumatic and normocephalic. NECK: supple EXTREMITIES: 2/2 pedal pulses, strength 5/5, right foot shows moderate swelling and erythema from the base of the 2nd, 3rd, 4th, 5th toe spreading up into the ankle. No fluctuance. Warm and tender to touch. DIP/PIP/MCP flexion/ extension intact with good light touch sensation. no deformities, no clubbing, no cyanosis or edema. NEUROLOGICAL: no focal neuro deficits. GCS 15. Light touch sensation intact. SKIN: Warm and dry, no erythema. no rash. Good capillary refill. Source: Patient Exam Limitations: No limitations - Medical/Surgical History Hx Asthma: No Hx Chronic Respiratory Disease: No Hx Diabetes: No Hx Cardiac Disease: No Hx Renal Disease: No Hx Cirrhosis: No Hx Alcoholism: No Hx HIV/AIDS: No Hx Splenectomy or Spleen Trauma: No Other PMH: sciatica, iv drug use hx - Social History Smoking Status: Current every day smoker Constitutional: Initial Vital Signs Temperature (C) 37.0 C 02/26/18 10:22 Heart Rate 102 H 02/26/18 10:22 Respiratory Rate 16 02/26/18 10:22 Blood Pressure 127/84 H 02/26/18 10:22 O2 Sat (%) 97 02/26/18 10:22 O2 Delivery Mode Room Air Allergies/Adverse Reactions: No Known Allergies Allergy (Verified 02/24/18 16:26) Home Medications: Medication Instructions Recorded Cephalexin [Keflex] 500 mg PO QID #40 cap 02/24/18 Sulfamethox/Tmp 800/160 mg 1 tab PO BID #20 tab 02/24/18 [Bactrim DS] Melatonin [Melatonin 3 MG (*)] 3 mg PO HS PRN 02/26/18 Naproxen Sodium [Aleve 220 MG (*)] 220 mg PO BID PRN 02/26/18 Medical Decision Making ED Course/Re-evaluation: Vital signs reviewed and show mild tachycardia. IV access and laboratory studies obtain. Failed outpatient treatment. Will give IV Unasyn and consult hospitalist for admission for cellulitis versus tenosynovitis. Spoke with Danita who kindly agrees to admit patient to [facility] under the care of Dr. Inman. MRI of the foot ordered to evaluate for tenosynovitis/abscess; results pending at time of consult. 1145: Labs reviewed. No signs of leukocytosis/anemia/platelet dysfunction/ABHISHEK/ electrolyte imbalance. ESR is 8. Patient is now requesting pain medication. IV morphine 2 mg given. No signs of neurovascular compromise/tenting of skin/compartment syndrome/ extremities and joints examined above and below area of concern and are neurovascularly intact. This patient was seen under the supervision of my secondary supervising physician. I evaluated care for this patient independently. Discussed this patient with Dr. Nuñez. Differential Diagnosis: Differential diagnosis includes but is not limited to cellulitis, abscess, tenosynovitis. - Data Points Laboratory Results: Laboratory Results 02/26/18 11:00 02/26/18 11:00 02/26/18 02/26/18 11:00 11:00 WBC 7.16 10^3/uL 10^3/uL (3.80-9.50) RBC 4.93 10^6/uL 10^6/uL (4.40-6.38) Hgb 14.4 g/dL g/dL (13.7-17.5) Hct 42.2 % % (40.0-51.0) MCV 85.6 fL fL (81.5-99.8) MCH 29.2 pg pg (27.9-34.1) MCHC 34.1 g/dL g/dL (32.4-36.7) RDW 14.2 % % (11.5-15.2) Plt Count 199 10^3/uL 10^3/uL (150-400) MPV 9.2 fL fL (8.7-11.7) Neut % (Auto) 74.4 % H % (39.3-74.2) Lymph % (Auto) 15.5 % % (15.0-45.0) [place] % (Auto) 8.5 % % (4.5-13.0) Eos % (Auto) 0.7 % % (0.6-7.6) Baso % (Auto) 0.3 % % (0.3-1.7) Nucleat RBC Rel Count 0.0 % % (0.0-0.2) Absolute Neuts (auto) 5.33 10^3/uL 10^3/uL (1.70-6.50) Absolute Lymphs (auto) 1.11 10^3/uL 10^3/uL (1.00-3.00) Absolute Monos (auto) 0.61 10^3/uL 10^3/uL (0.30-0.80) Absolute Eos (auto) 0.05 10^3/uL 10^3/uL (0.03-0.40) Absolute Basos (auto) 0.02 10^3/uL 10^3/uL (0.02-0.10) Absolute Nucleated RBC 0.00 10^3/uL 10^3/uL (0-0.01) Immature Gran % 0.6 % % (0.0-1.1) Immature Gran # 0.04 10^3/uL 10^3/uL (0.00-0.10) ESR 25 MM/HR H MM/HR (0-15) Sodium 139 mEq/L mEq/L (135-145) Potassium 3.9 mEq/L mEq/L (3.3-5.0) Chloride 104 mEq/L mEq/L (97-110) Carbon Dioxide 26 mEq/l mEq/l (22-31) Anion Gap 9 mEq/L mEq/L (6-14) BUN 9 mg/dL mg/dL (7-23) Creatinine 0.9 mg/dL mg/dL (0.7-1.3) Estimated GFR > 60 Glucose 103 mg/dL H mg/dL (70-100) Calcium 9.0 mg/dL mg/dL (8.5-10.4) Medications Given: Discontinued Medications Ampicillin Sodium/Sulbactam (Sodium 3 gm/ Sodium Chloride) 100 mls @ 200 mls/ hr IV EDNOW ONE PRN Reason: Protocol Stop: 02/26/18 11:26 Last Admin: 02/26/18 13:08 Dose: 100 mls Morphine Sulfate (Morphine) 2 mg IVP EDNOW ONE Stop: 02/26/18 11:52 Last Admin: 02/26/18 11:51 Dose: 2 mg Departure - Departure Disposition: [facility] Acute Clinical Impression: Cellulitis of right foot, Failure of outpatient treatment Condition: Fair
[2018-02-26] MEDS ORDERED: AMPICILLIN/SULBACTAM 3 GM in NS 100 ML IV ONE (10:57)
[2018-02-26 11:14] LABS: PLATELET COUNT 199 10^3/uL (150-400)
[2018-02-26] MEDS ORDERED: GADOBUTROL 10 ML VIAL IVP ONE (11:48)
[2018-02-26] MEDS ORDERED: ONDANSETRON 4 MG/2 ML VIAL IVP PRN (12:44)
[2018-02-26] MEDS ORDERED: oxyCODONE IR 5 MG TAB PO PRN (12:44)
[2018-02-26] MEDS ORDERED: ONDANSETRON DISINTEGRATING 4 MG TAB PO PRN (12:44)
[2018-02-26] MEDS: ACETAMINOPHEN 325 MG TAB PO PRN ×2 (13:28→20:12)
--- NOTE | 2018-02-26 15:04 | ASMTCMCOM ---
CM Note CM Note Notes: Chart reviewed. Patient admitted via ED for cellulitis of right foot. 27 year old male with no identified needs at this time. Plan: Likely to dc independent. Date Signed: 02/26/2018 03:03 PM Electronically Signed By:Marielena Parikh RN
[2018-02-26] MEDS ORDERED: NAPROXEN SODIUM 220 MG TAB PO PRN (16:23)
--- NOTE | 2018-02-26 16:27 | PDGENHP ---
History and Physical - Chief Complaint Acute foot pain - History of Present Illness Primary care provider: None HPI: 27-year-old male presenting with acute foot pain located on the dorsal surface of his right foot characterized as sharp burning sensation with associated redness, swelling. Patient reports the onset of symptoms was 02/24, and duration has been persistent and worsening thereafter. The pain is exacerbated with movement and has limited the range of motion of his 3rd 4th and 5th digits on his right foot. He feels that the pain is somewhat alleviated with Tylenol as well as medial rotation and inversion of his right foot. He denies any ankle knee or hip issues, and does endorse some tender right inguinal lymphadenopathy. He does admit that he injected heroin several days prior to the onset of this symptom, but he used the left ventral forearm for this purpose. He has not recently injected any drugs in his right foot. He denies any recent trauma to the right foot but does endorse that there is a small area of skin which has been scratched along the dorsal distal surface. He presented to our emergency department on 02/24 received 1 dose of IV ceftriaxone, then a prescription for Keflex and Bactrim. The patient began these 2 antibiotics immediately, and the affected area progressed despite adherence to these medications. History Information - Allergies/Home Medication List Allergies/Adverse Reactions: No Known Allergies Allergy (Verified 02/24/18 16:26) Home Medications: Melatonin [Melatonin 3 MG (*)] 3 mg PO HS PRN 02/26/18 [Last Taken Unknown] Naproxen Sodium [Aleve 220 MG (*)] 220 mg PO BID PRN 02/26/18 [Last Taken 21:00] I have personally reviewed and updated: family history, medical history, social history, surgical history - Past Medical History Additional medical history: Frequent skin infections, reportedly MRSA in high school. Intermittent IV drug use with heroin, intermittently on naltrexone. Recent right brachial artery laceration and tendon laceration status post window trauma - Surgical History Additional surgical history: October 2017 tendon repair and brachial artery saphenous vein graft in the right upper extremity - Family History Additional family history: No family history of immunocompromise or skin infections - Social History Smoking Status: Current every day smoker Alcohol Use: Occasionally (Approximately 5 alcoholic beverages 3 times weekly, last alcohol was last night, he has never experienced alcohol withdrawal) Drug Use: Heroin (Intermittent use, most recent use was several days ago, most recent use prior to that time was approximately 6-9 months ago with last HIV test in July of 2017), Marijuana Additional social history: 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 Review of Systems Review of Systems: ROS: 10pt was reviewed & negative except for what was stated in HPI & below Muscolosketal: Reports: other (Right foot pain) Skin: Reports: other (Edema, erythema) Physical Exam Physical Exam: Temp Pulse Resp BP Pulse Ox 37 C 87 18 127/72 H 96 02/26/18 12:02 02/26/18 13:08 02/26/18 13:08 02/26/18 13:08 02/26/18 13:08 Constitutional: no apparent distress, appears nourished, not in pain Eyes: PERRL, anicteric sclera, EOMI Ears, Nose, Mouth, Throat: moist mucous membranes, hearing normal, ears appear normal, no oral mucosal ulcers Cardiovascular: regular rate and rhythym, no murmur, rub, or gallop, No edema Respiratory: no respiratory distress, no rales or rhonchi, clear to auscultation Gastrointestinal: normoactive bowel sounds, soft, non-tender abdomen, no palpable masses Skin: other (Tender, erythematous, blanchable dorsal surface of his right foot extending from the proximal foot to the medial toes of digits 3 4 and 5 with a small skin abrasion proximal to the toes) Musculoskeletal: other (Painful dorsi and plantar flexion of the 4th digit on the right, painful plantar flexion on the 3rd digit on the right, full range of motion right ankle and right knee without any pain) Neurologic: AAOx3, sensation intact bilaterally, No weakness Psychiatric: interacting appropriately, not anxious, not encephalopathic, thought process linear Lymph, Heme, Immunologic: other (Tender 2 cm lymph nodes in the right groin, shoddy lymphadenopathy bilateral lymph nodes, palpable nontender anterior cervical lymph nodes, no supraclavicular lymph nodes palpated) Lab Data & Imaging Review 02/26/18 11:00 02/26/18 11:00 WBC 7.16 10^3/uL (3.80-9.50) 02/26/18 11:00 RBC 4.93 10^6/uL (4.40-6.38) 02/26/18 11:00 Hgb 14.4 g/dL (13.7-17.5) 02/26/18 11:00 Hct 42.2 % (40.0-51.0) 02/26/18 11:00 MCV 85.6 fL (81.5-99.8) 02/26/18 11:00 MCH 29.2 pg (27.9-34.1) 02/26/18 11:00 MCHC 34.1 g/dL (32.4-36.7) 02/26/18 11:00 RDW 14.2 % (11.5-15.2) 02/26/18 11:00 Plt Count 199 10^3/uL (150-400) 02/26/18 11:00 MPV 9.2 fL (8.7-11.7) 02/26/18 11:00 Neut % (Auto) 74.4 % (39.3-74.2) H 02/26/18 11:00 Lymph % (Auto) 15.5 % (15.0-45.0) 02/26/18 11:00 [place] % (Auto) 8.5 % (4.5-13.0) 02/26/18 11:00 Eos % (Auto) 0.7 % (0.6-7.6) 02/26/18 11:00 Baso % (Auto) 0.3 % (0.3-1.7) 02/26/18 11:00 Nucleat RBC Rel Count 0.0 % (0.0-0.2) 02/26/18 11:00 Absolute Neuts (auto) 5.33 10^3/uL (1.70-6.50) 02/26/18 11:00 Absolute Lymphs (auto) 1.11 10^3/uL (1.00-3.00) 02/26/18 11:00 Absolute Monos (auto) 0.61 10^3/uL (0.30-0.80) 02/26/18 11:00 Absolute Eos (auto) 0.05 10^3/uL (0.03-0.40) 02/26/18 11:00 Absolute Basos (auto) 0.02 10^3/uL (0.02-0.10) 02/26/18 11:00 Absolute Nucleated RBC 0.00 10^3/uL (0-0.01) 02/26/18 11:00 Immature Gran % 0.6 % (0.0-1.1) 02/26/18 11:00 Immature Gran # 0.04 10^3/uL (0.00-0.10) 02/26/18 11:00 ESR 25 MM/HR (0-15) H 02/26/18 11:00 Sodium 139 mEq/L (135-145) 02/26/18 11:00 Potassium 3.9 mEq/L (3.3-5.0) 02/26/18 11:00 Chloride 104 mEq/L (97-110) 02/26/18 11:00 Carbon Dioxide 26 mEq/l (22-31) 02/26/18 11:00 Anion Gap 9 mEq/L (6-14) 02/26/18 11:00 BUN 9 mg/dL (7-23) 02/26/18 11:00 Creatinine 0.9 mg/dL (0.7-1.3) 02/26/18 11:00 Estimated GFR > 60 02/26/18 11:00 Glucose 103 mg/dL (70-100) H 02/26/18 11:00 Calcium 9.0 mg/dL (8.5-10.4) 02/26/18 11:00 Visualized and Interpreted imaging results: Yes Interpretation: MRI foot demonstrating myositis, bursitis, no tendon sheath enhancement right foot with extensive dorsal cellulitis Assessment & Plan Assessment: 27-year-old male presents with acute cellulitis, bursitis, myositis right foot Plan: 1. Cellulitis. Acute, complicated by additional deep tissue infection with bursitis and myositis, but no evidence of tenosynovitis on MRI -further workup with blood cultures indicated given his recent IV drug use -reviewed outside records including 02/24 emergency department report by Dr. Dereck Godwin, indicates the patient received IV ceftriaxone, had blood cultures drawn at that time which are currently no growth to date, received appropriate prescription for Keflex and Bactrim given his history of MRSA -despite the patient utilizing the above-mentioned antibiotics, he has experience worsening of his cellulitis and requires broad-spectrum IV antibiotics as well as inpatient admission to monitor for clinical resolution -will initiate IV vancomycin at this time, repeat blood cultures prior to antibiotic dosing to ensure he is not developed bacteremia -will also get Infectious Disease consultation tomorrow given the extensive nature of his infection -monitor white blood cell count 2. Opiate abuse disorder with heroin addiction. Most recent IV drug use several days ago, patient has had additional exposure within the past year, requires repeat hep C and HIV screening, patient verbally consented, he is aware that he will require repeat testing in approximately 3 months to rule out any acute infection from his most recent exposure Diet. Regular next prophylaxis. Low risk patient, SCDs Code. Full, his father is MD ESPINOSA Disposition. Anticipated discharge uncertain this time, anticipated length stay is greater than 48 hr for reasonable medical necessity including acute cellulitis which is refractory to oral outpatient IV and oral antibiotics, requiring IV antibiotics as an inpatient with frequent clinical monitoring. Discussed patient with Galilea Cisneros, hospitalist provider, she has signed out the patient to me for evaluation.
--- NOTE | 2018-02-26 16:51 | PDMN ---
Medical Necessity Medical necessity: MCG: M70 cellulitis: A-2 days: acute foot pain with burning , redness, swelling, onset two days ago persistent, received IV ceftriaxone in ED two days ago and prescription for Keflex and Bactrim. - symptoms persisting despite meds. - cellulitis complicated by additional deep tissue infection with bursitis and myositis, without evidence of tenosynovitis. PMH freq skin infections, MRSA, IV drug use, ID consult pend., anticipate > 2 MN ongoing med nec care, further eval and tx.
[2018-02-26] MEDS: VANCOMYCIN 1.25 GM in D5W 250 ML IV SCH (18:03)
[2018-02-26] MEDS: IBUPROFEN 600 MG TAB PO PRN (20:12)
[2018-02-26] MEDS: MELATONIN 3 MG TAB PO PRN (22:56)
[2018-02-27] MEDS: VANCOMYCIN 1.25 GM in D5W 250 ML IV SCH ×2 (04:30→16:14)
[2018-02-27] MEDS: ACETAMINOPHEN 325 MG TAB PO PRN ×4 (04:33→23:02)
[2018-02-27] MEDS: IBUPROFEN 600 MG TAB PO PRN ×2 (04:33→20:41)
[2018-02-27 04:43] LABS: PLATELET COUNT 187 10^3/uL (150-400)
--- NOTE | 2018-02-27 13:01 | GCON ---
INFECTIOUS DISEASE CONSULTATION DATE OF CONSULTATION: 02/27/2018 REFERRING PHYSICIAN: Solo Inman MD REASON FOR CONSULTATION: Right foot cellulitis/myositis. HISTORY OF PRESENT ILLNESS: The patient is a 27-year-old male with a past medical history of injecti on drug use who I am asked to see in consultation for right foot cellulitis and myositis. The patien t describes developing onset of right foot pain around the 4th toe on the Sunday preceding hospital admission. This subsequently was associated with swelling and erythema with worsening pain, which a ffected the lateral aspect of his right foot. He did not have associated fever or chills. He did no t note any red streaks over his lower leg or thigh. He did have some mild tenderness in the right in guinal region. The patient does note that he did inject cocaine into the upper extremity on the day preceding onset of symptoms. He was seen in the emergency department on 02/24/2018, at which he was noted to have evidence of mild cellulitis and lymphangitis over the foot. He was treated with 1 g of ceftriaxone and discharged on oral Keflex and Bactrim, which he was compliant with. Despite oral antibiotic therapy, his symptoms progressed and he had erythema extending over the entirety of the dorsal surface of his foot with in creased swelling of the ankle. He was able to elevate his leg intermittently. His pain became such that he could not bear weight. He denies any preceding injuries to the foot, other than he does scra tch his skin at the base of his toes. While in high school, he did have 1 episode of MRSA skin and s oft tissue infection. He believes he has had a tetanus booster within the last 10 years. He notes t hat he only uses clean needles and does not share needles. Blood cultures were obtained on the day o f his emergency department visit, which remain negative. These were repeated at time of repeat prese ntation yesterday. He has been started empirically on vancomycin with some decrease in swelling over his foot. Given the above findings, I am now asked to assist in his ongoing management. PAST MEDICAL HISTORY: MRSA skin and soft tissue infection of the right lower extremity while in high school, transection of the right brachial artery requiring repair related to traumatic injury. PAST SURGICAL HISTORY: Repair of transected brachial artery and repair of transected biceps tendon. CURRENT MEDICATIONS: Vancomycin 1.25 g IV q.12 hours, melatonin 3 mg p.o. as needed q.h.s., Aleve as needed for mild pain. ALLERGIES: No known drug allergies. SOCIAL HISTORY: Patient smokes approximately 5 cigarettes per day. He drinks 1 alcoholic beverage d aily in 4-6 on the weekends. Prior use of injection, cocaine and heroin; he notes he had not used fo r a period of time prior to recent use. 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 FAMILY HISTORY: Prostate cancer. REVIEW OF SYSTEMS: Outside that noted in the HPI, the remainder of 10-system review is unremarkable. PHYSICAL EXAMINATION: VITAL SIGNS: Temperature 36.4, heart rate 60, respiratory rate 16, blood pres sure 90/40, oxygen saturation 100% on room air. GENERAL: Patient is well nourished, well developed in no acute distress. He appears nontoxic. HEENT: There is no scleral icterus, conjunctival inject ion, or conjunctival petechiae. Oropharynx shows moist mucous membranes. No nasal discharge or sinu s tenderness. NECK: Supple without palpable lymphadenopathy or thyromegaly. CHEST: Clear to auscu ltation bilaterally without adventitious sounds. The respiratory effort is normal. CARDIOVASCULAR: Regular rate and rhythm without murmurs, gallops, or rubs. ABDOMEN: Soft, nontender, nondistended. No palpable organomegaly or organomegaly. MUSCULOSKELETAL: The right foot shows faint erythema ov er the entirety of the foot, but does not extend above the ankle. There is concomitant edema present . There is tenderness which is most prominent at the base of the toes in the mid foot. No palpable fluctuance. No bullae. No areas of crepitus. The patient does not have significant pain with passi ve range of motion of his ankle. No erythema over lower leg or thigh. LYMPHATICS: No cervical or s upraclavicular nodes. There are shotty nontender nodes in the right inguinal region, which are freel y mobile. SKIN: See musculoskeletal. There are some small scratches overlying the dorsal aspect of the foot. No stigmata of endocarditis. Multiple tattoos are present. Skin is warm and dry to touc h. Well-healed scar over the right brachial region. NEUROLOGIC: Patient is alert and interacts linda ropriately with the examiner. Cranial nerves 2-12 are grossly intact. Muscle tone and bulk are norm al. Sensation is intact. LABORATORY/IMAGING: White blood cell count 8.9, hematocrit 37.6, platelets 187, neutrophils 65%, lym phocytes 23%. Serum creatinine is 0.9. Blood cultures x2 on 02/24, are no growth. Blood cultures x 2 on 02/26/2018, are pending. MRI of the right foot shows changes consistent with cellulitis and mild myositis, as well as intermet atarsal bursitis. No evidence of abscess or osteomyelitis. IMPRESSION: Right foot cellulitis with mild associated myositis on MRI: Most likely, this is due to beta-hemolytic streptococci based on appearance. Potential portal of entry are small scratches in r ight foot. Less likely, this is associated with his recent injection drug use, although this is poss ible as well. He also has a remote history of methicillin-resistant Staphylococcus aureus skin and s oft tissue infection. Clinically and radiographically, there is no drainable focus present. RECOMMENDATIONS: 1. Agree with vancomycin 1.25 g IV q.12 hours. 2. Elevate right lower extremity. 3. Follow clinical response to above measures. 4. Follow up blood cultures as available. 5. Hepatitis and HIV screening. Thank you for this consultation. We will continue to follow the patient with you. /[id number]/MODL
--- NOTE | 2018-02-27 17:25 | HOSPPROG ---
Hospitalist Progress Note Assessment/Plan: Assessment: 27-year-old male presents with acute cellulitis, bursitis, myositis right foot Plan: 1. Cellulitis. Acute, complicated by additional deep tissue infection with bursitis and myositis, but no evidence of tenosynovitis on MRI -BCx pending -blanchable erythema/ROM improving today, Dr. Dos Santos recommends ongoing IV vanco 1.25 q12 given MRSA hx -counseled patient that likely cause is small skin break/scrape on distal foot, no e/o bacteremia 2. Opiate abuse disorder with heroin addiction. Most recent IV drug use several days ago, patient has had additional exposure within the past year -HIV/HCV tests pending -pain managed w/ PO tylenol/ibuprofen -PRN ice, elevate when in bed -d/w RN, monitor for signs of opiate/EtOH withdraw Diet. Regular next prophylaxis. Low risk patient, SCDs Code. Full, his father is MD ESPINOSA Disposition. Anticipated discharge uncertain this time, ongoing IV Abx needs given non-response to outpt IV/PO Abx. Subjective: patient reports ongoing swelling yen dorsum of foot, but less tight Objective: Vital Signs Temp Pulse Resp BP Pulse Ox 36.7 C 81 16 128/68 H 97 02/27/18 16:01 02/27/18 16:01 02/27/18 16:01 02/27/18 16:01 02/27/18 16:01 Laboratory Results 02/27/18 04:01 02/26/18 02/27/18 02/28/18 05:59 05:59 05:59 Intake Total 910 Output Total 500 Balance 410 - Physical Exam Constitutional: no apparent distress, appears nourished, not in pain, uncomfortable Cardiovascular: regular rate and rhythym, no murmur, rub, or gallop, edema ( soft tissue on dorsum R foot) Respiratory: no respiratory distress, no rales or rhonchi, clear to auscultation Gastrointestinal: normoactive bowel sounds, soft, non-tender abdomen, No distension Skin: other (blanching erythema R dorsum of foot w/ minimal tenderness, no fluctuance/induration) Musculoskeletal: other (full ROM R ankle, improved ROM R 3/4/5 digits, ongoing pain w/ plantar flexion 3rd digit, dorsiflexion 4th digit) Neurologic: AAOx3, sensation intact bilaterally, No weakness Psychiatric: interacting appropriately, not anxious, not encephalopathic, thought process linear ICD10 Worksheet Patient Problems: Problems Problem Status Onset Cellulitis of right foot Acute Failure of outpatient treatment Acute Arm laceration Acute Biceps tendon rupture Acute Hemorrhage Acute
[2018-02-27] MEDS: MELATONIN 3 MG TAB PO PRN (23:02)
[2018-02-28] MEDS: VANCOMYCIN 1.25 GM in D5W 250 ML IV SCH (04:31)
[2018-02-28 06:00] LABS: HEPATITIS B SURFACE ANTIGEN NEGATIVE (NEGATIVE)
[2018-02-28 07:12] LABS: HEPATITIS B CORE AB TOTAL NEGATIVE (NEGATIVE); HEPATITIS C ANTIBODY TOTAL NEGATIVE (NEGATIVE); HIV TYPE 1 AND 2 NEGATIVE (NEGATIVE)
[2018-02-28 07:29] VITALS: BP 103/57
[2018-02-28] MEDS: ACETAMINOPHEN 325 MG TAB PO PRN (08:48)
--- NOTE | 2018-02-28 09:53 | ASMTCMCOM ---
CM Note CM Note Notes: Patient chart reviewed. No current needs identified. Plan will be to dc independent once medically cleared for discharge. Plan: As above. Date Signed: 02/28/2018 09:52 AM Electronically Signed By:Marielena Parikh RN
--- NOTE | 2018-02-28 09:54 | HOSPPROG ---
Hospitalist Progress Note Assessment/Plan: 27-year-old male with h/o IVDU presents with acute cellulitis, bursitis, myositis right foot #Right foot cellulitis, myositis, bursitis: No e/o osteo or drainable fluid collection on MRI. Clinically improving. Unclear source but potentially skin break. Not septic, cultures remain without growth. - Given extent of involvement, would favor ongoing IV antibiotics - Continue vancomycin 1.25mg q12 - Appreciate ID input - Follow cultures, fever curve #IVDU with opioid abuse disorder: No e/o withdrawal at present - HIV, HCV negative - Pain control with PO tylenol, ibuprofen Diet. Regular VTE prophylaxis. Low risk patient, SCDs Code. Full, his father is MD FRANCISCA Disposition. Remain inpatient for IV antibiotics. Anticipated discharge uncertain this time, ongoing IV Abx needs given non-response to outpt IV/PO Abx. Subjective: Doing well. Thinks swelling has gone down. Minimal pain, no drainage. No fevers. Objective: Vital Signs Temp Pulse Resp BP Pulse Ox 36.7 C 57 L 16 103/57 L 94 02/28/18 07:28 02/28/18 07:28 02/28/18 07:28 02/28/18 07:28 02/28/18 07:28 Laboratory Results 02/27/18 04:01 02/28/18 04:16 02/27/18 02/28/18 03/01/18 05:59 05:59 05:59 Intake Total 910 2800 267 Output Total 500 Balance 410 2800 267 - Physical Exam Constitutional: no apparent distress, appears nourished, not in pain Eyes: PERRL, anicteric sclera, EOMI Ears, Nose, Mouth, Throat: moist mucous membranes, hearing normal, ears appear normal, no oral mucosal ulcers Cardiovascular: regular rate and rhythym, no murmur, rub, or gallop Respiratory: no respiratory distress, no rales or rhonchi, clear to auscultation Gastrointestinal: normoactive bowel sounds, soft, non-tender abdomen, no palpable masses Genitourinary: no bladder fullness, no bladder tenderness, no renal bruits, hodges in urethra Skin: erythema (right dorsal foot with associated edema), other (healed track scott in antecubital fossa, few excoriations on left foot) Musculoskeletal: full muscle strength, no muscle tenderness, normal joint ROM Neurologic: AAOx3, sensation intact bilaterally, other (R foot neurovascularly intact) Psychiatric: interacting appropriately, not anxious, not encephalopathic, thought process linear ICD10 Worksheet Patient Problems: Problems Problem Status Onset Cellulitis of right foot Acute Failure of outpatient treatment Acute Arm laceration Acute Biceps tendon rupture Acute Hemorrhage Acute
--- NOTE | 2018-02-28 11:49 | PCMIDPN ---
Assessment/Plan: Left foot cellulitis with myositis on MRI, significant improvement. Patient able to ambulate. Reviewed pictures of prior disease on patient's phone. Patient is clinically well enough for discharge and has housing. --DC on Keflex 500 mg four times daily and doxycycline 100 mg twice daily for 7 more days. --continue elevation as needed --patient is given instructions about following up with ID Subjective: Patient states that his foot is"100% better"and that he can ambulate now which he could not 2 days ago. Minimal pain associated with his foot. Swelling much improved in erythema better. Patient desires discharge. Objective: Vital Signs Temp Pulse Resp BP Pulse Ox 36.7 C 57 L 16 103/57 L 94 02/28/18 07:28 02/28/18 07:28 02/28/18 07:28 02/28/18 07:28 02/28/18 07:28 Laboratory Results 02/27/18 04:01 02/28/18 04:16 02/27/18 02/28/18 03/01/18 05:59 05:59 05:59 Intake Total 910 2800 267 Output Total 500 Balance 410 2800 267 ESR 25 MM/HR (0-15) H 02/26/18 11:00 - Physical Exam General Appearance: alert, no apparent distress, thin EENT: No thrush Respiratory: No accessory muscle use Extremities: swelling (Mild swelling associated with the left dorsum of the foot ), erythema ([id number] erythema over the dorsum of the left foot without crepitus, minimal tenderness to palpation, no fluctuance) Peripheral Pulses: 2+: dorsalis-pedis (R), dorsalis-pedis (L) Skin: signs of IVDA, other (Extensive tatoos), No rash, No embolic lesions Neuro/Psych: alert, normal mood/affect, oriented x 3 - Time Spent With Patient Time Spent with Patient: greater than 35 minutes Time Spent with Patient: Greater than 35 minutes spent on this patients care, greater than 50% of time spent counseling, educating, and coordinating care regarding the above mentioned plan. ICD10 Worksheet Patient Problems: Problems Problem Status Onset Arm laceration Acute Biceps tendon rupture Acute Cellulitis of right foot Acute Failure of outpatient treatment Acute Hemorrhage Acute
--- NOTE | 2018-02-28 13:10 | PDDCSUM ---
Discharge Summary Discharge Summary: Date of Admission: 02/26/2018 Date of Discharge: 02/28/2018 Consultants: infectious disease Studies: 1. Right lower extremity MRI with contrast - extensive dorsal cellulitis, abnormal edema and enhancement within plantar musculature in 3rd and 4th metatarsals compatible with myositis, intermetatarsal bursitis between 3rd and 4th metatarsal heads, small joint effusions within 3rd and 4th MTP joints, no osteomyelitis or abscess Discharge Diagnoses: 1. Right foot cellulitis with myositis 2. IVDU, opioid use disorder Brief Hospital Course: 27-year-old male with h/o IVDU with heroin presents with acute cellulitis and MRI evidence of myositis in right foot after failing outpatient PO antibiotics. ID consulted. No drainable fluid collection or osteo. Unclear portal of entry but possibly skin break, less likely IVDU. Started on IV vancomycin and clinically improved. Ambulating ok. Discharged to complete 7 more days of keflex and doxycycline. Blood cultures without growth at discharge. Medications: Please refer to EMR for complete list. Changes this admission include addition of keflex 500mg qid and doxycycline 100mg bid for 7 days. Prior script for bactrim was discontinued. Follow Up Plan: 1. Complete antibiotics as above 2. ID clinic visit with Dr Tracey 3. Follow up finalized blood cultures Physical Exam: Vitals reviewed, afebrile. Alert and oriented, rrr without murmur , lungs clear, abdomen soft, improving erythema and swelling on dorsum of right foot without drainage. Good ROM at right ankle. Neurovascularly intact in right foot. Mild excoriations on dorsum of left foot.
--- NOTE | 2018-02-28 14:13 | ASDISCHSUM ---
Discharge Information Plan Status:Home with No Needs Medically Cleared to Leave:02/28/2018 Discharge Date:02/28/2018 01:24 PM CM D/C Disposition:Home, Routine, Self-Care ADT D/C Disposition:Home, Routine, Self-Care Projected Discharge Date:02/28/2018 01:24 PM Transportation at D/C: Discharge Delay Reason: Follow-Up Date:02/28/2018 01:24 PM Discharge Slot: Final Diagnosis: Placement Information Patient Contact Information Contact Name:ROSENDO Relationship:Other Address: Work Phone: City: [facility] Phone: State/Com[place]ight Code: Email: Financial Information Financial Class:HMO and PPO Plans Primary Plan Desc:[facility] Primary Plan Number:[id number] Secondary Plan Desc: Secondary Plan Number: Assessment Information [facility] CM Progress Note CM Note CM Note Notes: Chart reviewed. Patient admitted via ED for cellulitis of right foot. 27 year old male with no identified needs at this time. Plan: Likely to dc independent. Date Signed: 02/26/2018 03:03 PM Electronically Signed By:Marielena Parikh RN [facility] CM Progress Note CM Note CM Note Notes: Patient chart reviewed. No current needs identified. Plan will be to dc independent once medically cleared for discharge. Plan: As above. Date Signed: 02/28/2018 09:52 AM Electronically Signed By:Marielena Parikh RN Intervention Information
--- NOTE | 2018-02-28 14:14 | ASMTLACE ---
LACE Length of stay for Answers: 2 days current admission Acuity / Level of Answers: Yes Care: Did the patient have an inpatient admission? # of Emergency department Answers: 3-4 visits in the last 6 months Social determinants Answers: History of substance abuse (ETOH, street drugs, prescription drugs, etc.) Score: 11 Date Signed: 02/28/2018 02:13 PM Electronically Signed By:Marielena Parikh RN
--- NOTE | 2018-02-28 14:18 | ASMTCMCOM ---
CM Note CM Note Notes: Medically cleared for discharge home. No needs identiified. Plan: Dc to home no needs. Date Signed: 02/28/2018 02:17 PM Electronically Signed By:Marielena Parikh RN
== END 2018-02-28 13:24 | disposition home or self-care (01) | DRG 603 ==
LOC: F1N 13:03
PROVIDERS: ADMIT Internal Medicine; ATTEND Internal Medicine
DX: L03.115 Cellulitis of right lower limb (principal); M77.51 Other enthesopathy of right foot and ankle; M60.073 Infective myositis, right foot; F11.20 Opioid dependence, uncomplicated; Z86.14 Personal history of Methicillin resistant Staphylococcus aureus infection; F17.210 Nicotine dependence, cigarettes, uncomplicated
CPT/HCPCS: 86704-90; 96374; 97116-GP; 97161-GP; A9585; G0472; J0295; J2270; J3370